=== PATIENT | male | born 1950 | race Caucasian/White ===

== ENCOUNTER 2021-09-24 10:04 | Emergency (ER) | payer SELFPAY ==
[2021-09-24 10:11] VITALS: BP 164/80; PULSE 57; TEMP 97.7; BMI 22.8
[2021-09-24 11:56] LABS: EPI CELLS 1 /uL (0-25.1); HYALINE CASTS 0 /uL (0-3.1); URINE APPEARANCE CLEAR; URINE BACTERIA 0 /uL (0-1359); URINE BILIRUBIN NEGATIVE (NEGATIVE); URINE COLOR YELLOW; URINE GLUCOSE (UA) NEGATIVE (NEGATIVE); URINE KETONE 1+ (NEGATIVE); URINE LEUK ESTERASE NEGATIVE (NEGATIVE); URINE NITRITE NEGATIVE (NEGATIVE); URINE PROTEIN NEGATIVE (NEGATIVE); URINE RBC 58 /uL (0-23.9); URINE UROBILINOGEN 0.2 mg/dL (0.2-1.0); URINE WBC 2 /uL (0-25.8)
== END 2021-09-24 14:45 | disposition home or self-care (01) ==
LOC: JER 10:04
DX: R33.8 Other retention of urine (principal)
CPT/HCPCS: 81003; 87086; 99283-25

== ENCOUNTER 2021-09-27 05:23 | Emergency (ER) | payer SELFPAY ==
[2021-09-27 05:47] VITALS: BMI 22.8
[2021-09-27] MEDS ORDERED: CYCLOBENZAPRINE HCL 10 MG TABLET (FP) ONE (07:47)
[2021-09-27] MEDS ORDERED: KETOROLAC TROMETHAMINE 30 MG/1 ML VIAL ONE (07:47)
[2021-09-27 08:40] VITALS: TEMP 98.8
[2021-09-27 08:41] LABS: BASO % 0.3 % (0-2.0); EOS % 0.3 % (0-4.5); EPI CELLS 1 /uL (0-25.1); HEMOGLOBIN 14.3 GM/dL (11.7-16.9); HYALINE CASTS 0 /uL (0-3.1); LYMPH % 8.7 % (8-40); MCH 31.2 pg (25.7-33.7); MEAN CELL VOLUME 91.7 fl (80-96); MONO % 5.3 % (3.8-10.2); NEUT % 85.4 % (42.8-82.8); PH,URINE 6.5 (5.0-8.0); PLATELET COUNT 185 10^3/uL (134-434); RBC 4.58 M/mm3 (4.00-5.60); RDW 13.3 % (11.9-15.9); URINE APPEARANCE CLEAR; URINE BACTERIA 7 /uL (0-1359); URINE BILIRUBIN NEGATIVE (NEGATIVE); URINE COLOR YELLOW; URINE GLUCOSE (UA) NEGATIVE (NEGATIVE); URINE KETONE TRACE (NEGATIVE); URINE LEUK ESTERASE NEGATIVE (NEGATIVE); URINE NITRITE NEGATIVE (NEGATIVE); URINE PROTEIN NEGATIVE (NEGATIVE); URINE RBC 19 /uL (0-23.9); URINE UROBILINOGEN 0.2 mg/dL (0.2-1.0); URINE WBC 5 /uL (0-25.8); WHITE BLOOD COUNT 5.7 K/mm3 (4.0-10.0)
[2021-09-27] MEDS ORDERED: CEPHALEXIN MONOHYDRATE 500 MG CAPSULE (UD) PO ONE (09:09)
[2021-09-27 09:40] LABS: ALBUMIN 3.8 g/dl (3.4-5.0)
[2021-09-27 09:41] LABS: BLOOD UREA NITROGEN 6.5 mg/dL (7-18)
[2021-09-27 09:44] LABS: CREATININE 0.9 mg/dL (0.55-1.3)
[2021-09-27 09:46] LABS: BILIRUBIN,TOTAL 0.6 mg/dL (0.2-1); TOT PROT 6.8 g/dl (6.4-8.2)
[2021-09-27] MEDS ORDERED: CEPHALEXIN MONOHYDRATE 500 MG CAPSULE (UD) ONE (09:46)
[2021-09-27 10:38] VITALS: BP 132/70; PULSE 50
== END 2021-09-27 11:00 | disposition home or self-care (01) ==
LOC: JER 05:23
PROC: 3E0233Z Introduction of Anti-inflammatory into Muscle, Percutaneous Approach (ICD-10-PCS; principal; 2021-09-27)
DX: R33.9 Retention of urine, unspecified (principal)
CPT/HCPCS: 36415; 80053; 81003; 85025; 87086; 99284-25

== ENCOUNTER 2021-10-06 05:06 | Inpatient (IN) | payer SELFPAY ==
[2021-10-06] MEDS ORDERED: IBUPROFEN 600 MG TABLET (FP) PO ONE ×2 (06:32→06:38)
[2021-10-06 08:41] LABS: EPI CELLS 4 /uL (0-25.1); HYALINE CASTS 1 /uL (0-3.1); URINE APPEARANCE CLEAR; URINE BACTERIA 324 /uL (0-1359); URINE BILIRUBIN NEGATIVE (NEGATIVE); URINE COLOR YELLOW; URINE GLUCOSE (UA) NEGATIVE (NEGATIVE); URINE KETONE NEGATIVE (NEGATIVE); URINE LEUK ESTERASE TRACE (NEGATIVE); URINE NITRITE NEGATIVE (NEGATIVE); URINE PROTEIN NEGATIVE (NEGATIVE); URINE RBC 173 /uL (0-23.9); URINE UROBILINOGEN 0.2 mg/dL (0.2-1.0); URINE WBC 24 /uL (0-25.8)
[2021-10-06] MEDS ORDERED: ACETAMINOPHEN 1000 MG/100 ML BAG IVPB PRN (09:42)
[2021-10-06 10:59] LABS: CALCIUM 8.9 mg/dL (8.5-10.1)
[2021-10-06 11:00] LABS: ALBUMIN 3.6 g/dl (3.4-5.0); BLOOD UREA NITROGEN 5.6 mg/dL (7-18); MAGNESIUM 2.4 mg/dL (1.8-2.4)
[2021-10-06 11:02] LABS: PHOSPHOROUS 2.8 mg/dL (2.5-4.9)
[2021-10-06 11:03] LABS: CREATININE 0.7 mg/dL (0.55-1.3)
[2021-10-06 11:04] LABS: BILIRUBIN,TOTAL 0.8 mg/dL (0.2-1); TOT PROT 6.7 g/dl (6.4-8.2)
[2021-10-06] MEDS ORDERED: ACETAMINOPHEN INJECTION 100 ML IVPB ONE (12:10)
[2021-10-06] MEDS ORDERED: ACETAMINOPHEN 325 MG TABLET (FP) PO PRN ×2 (14:41)
[2021-10-06] MEDS ORDERED: TAMSULOSIN HCL 0.4 MG CAP ONE (15:57)
[2021-10-06] MEDS: TAMSULOSIN HCL 0.4 MG CAP PO SCH (15:59)
[2021-10-07 02:59] VITALS: BMI 24.7
[2021-10-07] MEDS: TAMSULOSIN HCL 0.4 MG CAP PO SCH (08:30)
[2021-10-07 11:01] LABS: EPI CELLS 8 /uL (0-25.1); HYALINE CASTS 2 /uL (0-3.1); PH,URINE 7.5 (5.0-8.0); URINE APPEARANCE CLEAR; URINE BACTERIA 274 /uL (0-1359); URINE BILIRUBIN NEGATIVE (NEGATIVE); URINE COLOR YELLOW; URINE GLUCOSE (UA) NEGATIVE (NEGATIVE); URINE KETONE TRACE (NEGATIVE); URINE LEUK ESTERASE TRACE (NEGATIVE); URINE NITRITE NEGATIVE (NEGATIVE); URINE PROTEIN TRACE (NEGATIVE); URINE RBC 131 /uL (0-23.9); URINE UROBILINOGEN 0.2 mg/dL (0.2-1.0); URINE WBC 42 /uL (0-25.8)
[2021-10-07 13:07] LABS: BASO % 0.7 % (0-2.0); EOS % 2.6 % (0-4.5); HEMATOCRIT 43.9 % (35.4-49); HEMOGLOBIN 14.7 GM/dL (11.7-16.9); LYMPH % 17.4 % (8-40); MCH 30.7 pg (25.7-33.7); MCHC 33.6 g/dl (32.0-35.9); MEAN CELL VOLUME 91.6 fl (80-96); MEAN PLT VOLUME 7.9 fl (7.5-11.1); MONO % 8.2 % (3.8-10.2); NEUT % 71.1 % (42.8-82.8); PLATELET COUNT 256 10^3/uL (134-434); RDW 13.5 % (11.9-15.9); WHITE BLOOD COUNT 6.3 K/mm3 (4.0-10.0)
[2021-10-07 13:31] LABS: ALBUMIN 3.4 g/dl (3.4-5.0); MAGNESIUM 2.4 mg/dL (1.8-2.4)
[2021-10-07 13:34] LABS: PHOSPHOROUS 2.8 mg/dL (2.5-4.9)
[2021-10-07 13:35] LABS: CREATININE 0.7 mg/dL (0.55-1.3)
[2021-10-07 13:36] LABS: BILIRUBIN,TOTAL 0.8 mg/dL (0.2-1); TOT PROT 6.9 g/dl (6.4-8.2)
[2021-10-07] MEDS ORDERED: ENOXAPARIN NA (PORCINE) 40 MG/0.4 ML DISP.SYRIN SQ ONE (15:03)
[2021-10-07 15:17] LABS: BLOOD UREA NITROGEN 8.9 mg/dL (7-18)
[2021-10-08] MEDS: TAMSULOSIN HCL 0.4 MG CAP PO SCH (09:14)
[2021-10-08 10:20] LABS: EOS % 4.4 % (0-4.5); HEMATOCRIT 44.9 % (35.4-49); HEMOGLOBIN 14.6 GM/dL (11.7-16.9); LYMPH % 17.3 % (8-40); MCH 30.1 pg (25.7-33.7); MCHC 32.5 g/dl (32.0-35.9); MEAN CELL VOLUME 92.7 fl (80-96); MEAN PLT VOLUME 8.5 fl (7.5-11.1); MONO % 6.5 % (3.8-10.2); NEUT % 68.8 % (42.8-82.8); PLATELET COUNT 288 10^3/uL (134-434); RBC 4.84 M/mm3 (4.00-5.60); RDW 13.5 % (11.9-15.9)
[2021-10-08 10:23] LABS: CALCIUM 9.3 mg/dL (8.5-10.1)
[2021-10-08 10:24] LABS: ALBUMIN 3.3 g/dl (3.4-5.0)
[2021-10-08 10:27] LABS: CREATININE 0.8 mg/dL (0.55-1.3); PHOSPHOROUS 3.1 mg/dL (2.5-4.9)
[2021-10-08 10:29] LABS: TOT PROT 6.8 g/dl (6.4-8.2)
[2021-10-08 10:30] LABS: BILIRUBIN,TOTAL 0.5 mg/dL (0.2-1); MAGNESIUM 2.3 mg/dL (1.8-2.4)
[2021-10-08] MEDS ORDERED: DEXTROSE 5%-WATER - 50 ML IVPB ONE (21:59)
[2021-10-08] MEDS ORDERED: cefTRIAXone SODIUM 1 GM VIAL ONE (21:59)
[2021-10-08] MEDS ORDERED: CEFTRIAXONE 1 GM in DEXTROSE 5%-WATER - 50 ML IVPB ONE (22:00)
[2021-10-09 09:04] LABS: BASO % 0.6 % (0-2.0); EOS % 5.3 % (0-4.5); HEMATOCRIT 42.9 % (35.4-49); HEMOGLOBIN 14.5 GM/dL (11.7-16.9); LYMPH % 18.8 % (8-40); MCH 31.1 pg (25.7-33.7); MCHC 33.7 g/dl (32.0-35.9); MEAN CELL VOLUME 92.2 fl (80-96); MEAN PLT VOLUME 8.2 fl (7.5-11.1); MONO % 7.6 % (3.8-10.2); NEUT % 67.7 % (42.8-82.8); PLATELET COUNT 272 10^3/uL (134-434); RBC 4.66 M/mm3 (4.00-5.60); RDW 13.1 % (11.9-15.9); WHITE BLOOD COUNT 5.2 K/mm3 (4.0-10.0)
[2021-10-09 09:10] LABS: INR 1.13 (0.83-1.09)
[2021-10-09 10:00] LABS: BLOOD UREA NITROGEN 10.4 mg/dL (7-18); CALCIUM 8.8 mg/dL (8.5-10.1); MAGNESIUM 2.2 mg/dL (1.8-2.4)
[2021-10-09 10:01] LABS: ALBUMIN 3.4 g/dl (3.4-5.0)
[2021-10-09 10:04] LABS: TOT PROT 6.8 g/dl (6.4-8.2)
[2021-10-09 10:05] LABS: BILIRUBIN,TOTAL 0.6 mg/dL (0.2-1)
[2021-10-09 10:08] LABS: CREATININE 0.8 mg/dL (0.55-1.3)
[2021-10-09] MEDS: TAMSULOSIN HCL 0.4 MG CAP PO SCH (10:10)
[2021-10-09] MEDS ORDERED: cefTRIAXone SODIUM 1 GM VIAL ONE (10:15)
[2021-10-09] MEDS ORDERED: DEXTROSE 5%-WATER - 50 ML IVPB ONE (10:16)
[2021-10-09] MEDS ORDERED: CEFTRIAXONE 1 GM in DEXTROSE 5%-WATER - 50 ML IVPB SCH (10:30)
[2021-10-09] MEDS ORDERED: LIDOCAINE HCL 2% 100 MG/5 ML DISP.SYRIN ONE (10:36)
[2021-10-09] MEDS ORDERED: PROPOFOL 20 ML ONE (10:36)
[2021-10-09] MEDS ORDERED: KETOROLAC TROMETHAMINE 30 MG/1 ML VIAL ONE ×2 (10:36→12:23)
[2021-10-09] MEDS ORDERED: DEXAMETHASONE SOD PHOSPHATE 4 MG/1 ML VIAL ONE (10:36)
[2021-10-09] MEDS ORDERED: FENTANYL CITRATE/PF 50 MCG/ML VIAL ONE ×3 (10:38→12:04)
[2021-10-09] MEDS ORDERED: MIDAZOLAM HCL 2 MG/2 ML SINGLE DOSE VIAL ONE (10:39)
[2021-10-09] MEDS ORDERED: FLUCONAZOLE 200 MG/NS 100 ML IVPB SCH (11:00)
[2021-10-09] MEDS ORDERED: ceFAZolin SODIUM 1 GM VIAL IVPB ONE (11:55)
[2021-10-09] MEDS ORDERED: ceFAZolin SODIUM 1 GM VIAL ONE (11:57)
[2021-10-09] MEDS ORDERED: LIDOCAINE HCL 2% JELLY 10 ML CARTRIDGE ONE (12:14)
[2021-10-09] MEDS ORDERED: PROMETHAZINE HCL 25 MG/1 ML VIAL IVPUSH PRN (12:48)
[2021-10-09] MEDS ORDERED: ACETAMINOPHEN 325 MG TABLET (FP) PO PRN (13:50)
[2021-10-09] MEDS: LACTATED RINGERS SOLUTION 1,000 ML IV SCH ×2 (14:26→18:17)
[2021-10-10] MEDS: LACTATED RINGERS SOLUTION 1,000 ML IV SCH (05:41)
[2021-10-10] MEDS ORDERED: TAMSULOSIN HCL 0.4 MG CAP PO SCH (08:30)
[2021-10-10 08:52] LABS: BASO % 0.3 % (0-2.0); HEMATOCRIT 44.3 % (35.4-49); HEMOGLOBIN 14.8 GM/dL (11.7-16.9); LYMPH % 8.8 % (8-40); MCH 30.6 pg (25.7-33.7); MCHC 33.3 g/dl (32.0-35.9); MEAN CELL VOLUME 91.9 fl (80-96); MEAN PLT VOLUME 8.1 fl (7.5-11.1); MONO % 4.5 % (3.8-10.2); NEUT % 86.4 % (42.8-82.8); PLATELET COUNT 301 10^3/uL (134-434); RBC 4.81 M/mm3 (4.00-5.60); RDW 13.1 % (11.9-15.9); WHITE BLOOD COUNT 9.1 K/mm3 (4.0-10.0)
[2021-10-10 09:14] LABS: BLOOD UREA NITROGEN 9.5 mg/dL (7-18)
[2021-10-10 09:17] LABS: CREATININE 0.8 mg/dL (0.55-1.3)
[2021-10-10] MEDS ORDERED: CEFTRIAXONE 1 GM in DEXTROSE 5%-WATER - 50 ML IVPB SCH (10:00)
[2021-10-10] MEDS ORDERED: FLUCONAZOLE 200 MG/NS 100 ML IVPB SCH (10:00)
[2021-10-10] MEDS ORDERED: DEXTROSE 5%-WATER - 50 ML IVPB ONE (10:22)
[2021-10-10] MEDS ORDERED: cefTRIAXone SODIUM 1 GM VIAL ONE (10:22)
[2021-10-10 10:46] VITALS: PULSE 62
[2021-10-10 14:59] VITALS: BP 121/77; TEMP 97.8
== END 2021-10-10 16:44 | disposition home health service (06) | DRG 482 ==
LOC: JER 05:06 → UNDOADMOB 09:26 → INTOOBSV 09:26 → JERBED 09:26 → J8W 09:40 → JERBED 20:13 → J8W 20:13 → OBSVTOIN 10-08 08:13
PROVIDERS: ADMIT Internal Medicine
PROC: 0VB07ZZ Excision of Prostate, Via Natural or Artificial Opening (ICD-10-PCS; principal; 2021-10-09 11:00)
PROC: 3E1K88Z Irrigation of Genitourinary Tract using Irrigating Substance, Via Natural or Artificial Opening Endoscopic (ICD-10-PCS; 2021-10-09 11:00)
PROC: 0TJB8ZZ Inspection of Bladder, Via Natural or Artificial Opening Endoscopic (ICD-10-PCS; 2021-10-09 11:00)
DX: N40.1 Benign prostatic hyperplasia with lower urinary tract symptoms (principal); R33.8 Other retention of urine; N32.0 Bladder-neck obstruction; U07.1 COVID-19
CPT/HCPCS: 36415; 80048; 80053; 81003; 83615; 83735; 84100; 85025; 85379; 85610; 86140; 86850; 86900; 86901; 87077; 87086; 87186; 88305-TC; 94760; 99285-25; C9803-CS; G0378; U0003; U0005